=== PATIENT | male | born 1960 | race Caucasian/White ===

== ENCOUNTER 2019-07-04 05:41 | Outpatient (CLI) | payer BC ==
[~2019-07-04] VITALS: Ht 187 cm; Wt 104.5 kg
[2019-07-04] MEDS ORDERED: CETI10CA PO (11:58)
== END 2019-07-04 12:20 | disposition home or self-care (01) ==
LOC: PREOP 05:41
PROVIDERS: ATTEND Internal Medicine
DX: Z01.818 Encounter for other preprocedural examination (principal)

== ENCOUNTER 2019-07-08 07:11 | Day surgery (SDC) | payer BC ==
--- NOTE | 2019-07-03 01:55 | HISTORY AND PHYSICAL ---
DATE OF SERVICE: COLONOSCOPY HISTORY AND PHYSICAL HISTORY OF PRESENT ILLNESS: The patient is a 58-year-old white male, referred by Dr. Koroma for his first screening colonoscopy. About 8 weeks ago after eating a lot of peanuts, he had rather severe left lower quadrant abdominal pain. Symptoms persisted until he took a round of antibiotics. He is not sure. He does not recall the name, but was on it for at least a week. After 2 or 3 days of antibiotic therapy, his pain began to subside. He denied diarrhea, constipation, bright red blood per rectum or melena. He states that he has had several family members with colon polyps, but goes on to discuss symptoms that sound more like diverticulitis and I suspect he means pockets or diverticulum. He is not aware of any family history for colon cancer. Involved members were an aunt, a brother and his mother. PAST MEDICAL HISTORY: Significant for allergic rhinitis and he reports no other medical problems. MEDICATIONS: He takes Zyrtec one daily, Nasonex p.r.n. and p.r.n. Benadryl for seasonal allergies, worse in the spring and fall. PAST SURGICAL HISTORY: He had ankle surgery several years ago. FAMILY HISTORY: Mother at the age of 49 of complications from breast cancer. It sounds like she had diverticular disease. He had an aunt with diverticular disease and one brother living at the age of 41, may have had colon polyps, but also had diverticular disease with no known history of colon cancer. 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 REVIEW OF SYSTEMS: CONSTITUTIONAL: He denies weight loss, weight gain, night sweats, chills or fever. CARDIOVASCULAR: He reports no chest pain, dyspnea on exertion, palpitations, syncope or presyncope. PULMONARY: He denies cough, wheezing or shortness of breath. PHYSICAL EXAMINATION: GENERAL: Reveals a pleasant overweight white male in no acute distress. VITAL SIGNS: Weight is 234.6 pounds, blood pressure 118/86. HEENT: Unremarkable. Mallampati II oropharyngeal configuration with no evidence for pharyngeal erythema. CHEST: Clear to auscultation. CARDIOVASCULAR: Reveals a regular rate and rhythm without murmur, S3 or S4. ABDOMEN: Soft, supple without mass, organomegaly or tenderness. Bowel sounds positive. No bruits noted. EXTREMITIES: Reveal no cyanosis, clubbing or edema. ASSESSMENT AND PLAN: The patient was set up for screening colonoscopy on 06/27/2019. Prep instructions with the Suprep kit were given and questions were answered. I thank you for the referral of this pleasant gentleman. Sincerely, Job ID: [id number] DocumentID: [id number] Dictated Date: 06/23/2019 16:55:32 Railroad Wheels And Axle Inspector Date: 06/23/2019 17:22:56 Dictated By: VALERIANO FULLER MD
[~2019-07-08] VITALS: Ht 187 cm; Wt 104.5 kg
[2019-07-08] VITALS (10 sets, daily range): BP systolic 122–150; BP diastolic 76–94
[~2019-07-08 07:11] MED LIST: CETI10CA PO
[2019-07-08] MEDS ORDERED: D5 LR IV SOLUTION 1,000 ML IV STA (07:18)
[2019-07-08] MEDS ORDERED: D5 LR IV SOLUTION 1,000 ML IV ONE (07:19)
[2019-07-08] MEDS ORDERED: LIDOCAINE JELLY 2% 6 ML SYRINGE MM PRN (07:30)
[2019-07-08] MEDS ORDERED: NALOXONE 0.4 MG/ML 1 ML (NARCAN) VIAL IVP PRN (07:30)
[2019-07-08] MEDS ORDERED: FLUMAZENIL (ROMAZICON) 0.1 MG/ML 5 ML VIAL INJ PRN (07:30)
[2019-07-08] MEDS ORDERED: fentaNYL INJECTION 100 MCG/2 ML AMP IVP ONE (07:30)
[2019-07-08] MEDS ORDERED: MIDAZOLAM 5 MG/5 ML (VERSED) VIAL IV PRN (07:30)
[2019-07-08] MEDS ORDERED: HURRICAINE EXT TUBE (BENZOCAINE) XX PRN (07:30)
[2019-07-08] MEDS ORDERED: MIDAZOLAM 5 MG/5 ML (VERSED) VIAL ONE (07:37)
[2019-07-08] MEDS ORDERED: fentaNYL INJECTION 100 MCG/2 ML AMP ONE (07:37)
[2019-07-08] MEDS ORDERED: LIDOCAINE JELLY 2% 6 ML SYRINGE ONE (07:38)
--- NOTE | 2019-07-08 08:34 | Pre-Op Note & Conscious Sedat ---
Pre-Operative Progress Note H&P Reviewed The H&P was reviewed, patient examined and no changes noted. Date H&P Reviewed: Jul 08, 2019 Time H&P Reviewed: 07:30 Conscious Sedation Pre-Proced ASA Score 1 For ASA 3 and 4: Consider anesthesia and medical clearance. Also, for patients with a history of failed moderate sedation consider anesthesia. Airway Lungs Heart ASA score ASA 1: a normal healthy patient ASA 2: a patient with a mild systemic disease (mid diabetes, controlled hypertension, obesity ASA 3: a patient with a severe systemic disease that limits activity (angina, COPD, prior Myocardial infarction) ASA 4: a patient with an incapacitating disease that is a constant threat to life (CHF, renal failure) ASA 5: a moribund patient not expected to survive 24 hrs. (ruptured aneurysm) ASA 6: a declared brain- patient whose organs are being harvested. For emergent operations, add the letter E after the classification Mallampati Classification Grade 2 Sedation Plan Analgesia, Amnesia, Plan communicated to team members, Discussed options with patient/fam, Discussed risks with patient/fam The patient is an appropriate candidate to undergo the planned procedure, sedation, and anesthesia. The patient immediately re-assessed prior to indication. VALERIANO FULLER MD Jul 08, 2019 08:33 POS
--- NOTE | 2019-07-08 10:19 | OPERATIVE REPORT ---
DATE OF SERVICE: COLONOSCOPY SUMMARY INDICATION FOR THE PROCEDURE: Screening colonoscopy. DESCRIPTION OF PROCEDURE: The patient was placed in the left lateral decubitus position. Prior to undergoing colonoscopy, digital rectal evaluation was performed. Prostate is normal in size, anodular, nontender to digital inspection. Anal sphincter tone was normal and the perianal reflex was intact. No abnormalities, no digital inspection of the distal rectal vault. The colonoscope was then inserted into the rectum and under direct visualization advanced to the cecum. The cecum was identified by identification of ileocecal valve and cecal strap. Photographic documentation was obtained. Careful inspection was made as colonoscope withdrawn. The patient tolerated the procedure well. Quality of prep was good. There was no evidence for internal or external hemorrhoids. Present in the mid rectum was a diminutive 3 mm sessile polyp. It was photographed and biopsied and ablated with no subsequent blood loss. Remainder of the rectum was unremarkable. Several small sigmoid diverticulum were present without evidence for haustral hypertrophy or underlying diverticulitis. No other sigmoid colonic abnormalities were appreciated. The descending colon, splenic flexure, transverse colon, hepatic flexure, ascending colon and cecum were unremarkable. ASSESSMENT: 1. Mild diverticular disease confined to the sigmoid colon was present without evidence for diverticulitis. 2. One diminutive polyp was removed from the mid rectum. As long as there is no surprise on histopathology with no reported family history for colon cancer, we would advocate consideration for repeat screening colonoscopy in 10 years. I thank you for the referral of this pleasant gentleman. Job ID: [id number] DocumentID: [id number] Dictated Date: 07/08/2019 08:52:03 Batcher Operator Date: 07/08/2019 10:18:36 Dictated By: VALERIANO FULLER MD
== END 2019-07-08 09:45 | disposition home or self-care (01) ==
LOC: ENDO 07:11
PROVIDERS: ATTEND Internal Medicine
DX: Z12.11 Encounter for screening for malignant neoplasm of colon (principal); K63.5 Polyp of colon; K57.30 Diverticulosis of large intestine without perforation or abscess without bleeding; Z83.71 Family history of colonic polyps; Z80.3 Family history of malignant neoplasm of breast
CPT/HCPCS: 88305